=== PATIENT | male | born 1975 | race Caucasian/White ===

== ENCOUNTER 2019-06-19 14:46 | Emergency (ER) | payer BC ==
[2019-06-19 15:28] LABS: ANION GAP 15.4 mmol/L (5-15); CHLORIDE,CL 106 mmol/L (98-115); SODIUM,NA 141 mmol/L (136-145)
[2019-06-19] MEDS ORDERED: Ketorolac 30 MG/ML SDV IVPUSH ONE (15:29)
--- NOTE | 2019-06-19 15:36 | EDM.PDOC ---
ED HPI GENERAL MEDICAL PROBLEM - General Chief Complaint: General Stated Complaint: EXTREME PAIN IN LEFT TESTICAL Time Seen by Provider: 06/19/19 15:14 Source of Information: Reports: Patient History Limitations: Reports: No Limitations - History of Present Illness INITIAL COMMENTS - FREE TEXT/NARRATIVE: Patient presents with acute left testicle pain that started about 45 minutes ago while standing at work. He says there is no swelling, fever or drainage. He had a very similar episode of this 3-4 years ago that was treated as an infection of urine backflowing into the vas deferens he tells me. It did improve after a few days on antibiotic he says. He denies vasectomy or hernias. The pain is intermittent from 0-9/10. He is not sexually active currently but was for a short time about 6 weeks ago. Since his divorce 2 years ago he has had some problems with erectile dysfunction. He denies any kidney problems. He has hypertension and ulcerative colitis. He drove himself here today. Left Groin Pain Score (Numeric/FACES): 7 - Related Data Allergies Allergy/AdvReac Type Severity Reaction Status Date / Time No Known Drug Allergies Allergy Other Verified 06/19/19 14:50 Home Meds: Home Meds Mesalamine [Lialda] 4 tab PO DAILY 06/19/19 [History] buPROPion HCl [Bupropion Xl] 150 mg PO DAILY 06/19/19 [History] hydroCHLOROthiazide [Hydrochlorothiazide] 25 mg PO DAILY 06/19/19 [History] Past Medical History Cardiovascular History: Reports: Hypertension Gastrointestinal History: Reports: Other (See Below) Other Gastrointestinal History: ulcerative colitis Psychiatric History: Reports: Anxiety, Depression - Infectious Disease History Infectious Disease History: Reports: Chicken Pox - Past Surgical History Cardiovascular Surgical History: Reports: None GI Surgical History: Reports: None Social & Family History - Tobacco Use Smoking Status *Q: Current Every Day Smoker Years of Tobacco use: 2 Packs/Tins Daily: 1 - Caffeine Use Caffeine Use: Reports: Coffee, Energy Drinks, Soda - Recreational Drug Use Recreational Drug Use: No ED ROS GENERAL - Review of Systems Review Of Systems: See Below Constitutional: Denies: Fever, Weakness HEENT: Reports: No Symptoms Respiratory: Denies: Shortness of Breath, Cough Cardiovascular: Denies: Chest Pain, Lightheadedness, Syncope Endocrine: Denies: Polyuria GI/Abdominal: Denies: Abdominal Pain, Vomiting : Reports: Flank Pain (pain radiates up to left lateral low back but not really up to flank). Denies: Dysuria, Frequency, Hematuria, Incontinence Musculoskeletal: Reports: No Symptoms Skin: Reports: No Symptoms Neurological: Denies: Confusion, Seizure, Syncope, Trouble Speaking, Difficulty Walking Psychiatric: Denies: Agitation, Anxiety, Confusion ED EXAM, GENERAL - Physical Exam Exam: See Below Exam Limited By: No Limitations General Appearance: Alert, WD/WN, No Apparent Distress Eye Exam: Bilateral Eye: EOMI, Normal Inspection, PERRL Ears: Normal External Exam, Hearing Grossly Normal Nose: Normal Inspection, No Blood Throat/Mouth: Normal Inspection, Normal Lips, Normal Voice, No Airway Compromise Head: Atraumatic, Normocephalic Neck: Normal Inspection, Full Range of Motion Respiratory/Chest: No Respiratory Distress, Lungs Clear, Normal Breath Sounds, No Accessory Muscle Use Cardiovascular: Regular Rate, Rhythm, No Murmur GI/Abdominal: Normal Bowel Sounds, Soft, Non-Tender, No Organomegaly, No Distention (Male) Exam: No Hernia, Circumcised, Testicular Tenderness (L) (pain was somewhat relieved by manual elevation of testicle), Other (No pain to palpation of epididymis or groin.). No: Hernia, Inguinal Lymphadenopathy, Penile Lesions , Rash, Scrotal Swelling, Scrotum Tenderness (L) (just confined to testicle not the scrotum), Scrotum Tenderness (R), Suprapubic Fullness, Testicular Mass, Testicular Tenderness (R), Urethral Discharge Back Exam: Normal Inspection, Full Range of Motion Extremities: Normal Inspection, Normal Range of Motion, Non-Tender, No Pedal Edema Neurological: Alert, Oriented, Normal Cognition, No Motor/Sensory Deficits Psychiatric: Normal Affect, Normal Mood Skin Exam: Warm, Dry, Intact, Normal Color, No Rash Lymphatic: No Adenopathy Course - Vital Signs Last Recorded V/S: Last Vital Signs Temp 97.9 F 06/19/19 14:54 Pulse 86 06/19/19 14:54 Resp 20 06/19/19 14:54 BP 159/80 H 06/19/19 14:54 Pulse Ox 98 06/19/19 14:54 - Orders/Labs/Meds Labs: Laboratory Tests 06/19/19 06/19/1906/18/20 Range/Units 14:50 14:50 15:00 WBC 6.62 (5.00-10.00) 10^3/uL RBC 4.81 (4.50-6.00) 10^6/uL Hgb 14.9 (13.0-17.0) g/dL Hct 43.8 (40.0-52.0) % MCV 91.1 (82.0-92.0) fL MCH 31.0 (27.0-31.0) pg MCHC 34.0 (32.0-36.0) g/dL RDW 12.9 (11.5-14.5) % Plt Count 240 (150-400) 10^3/uL MPV 9.4 (7.4-10.4) fL Immature Gran % (Auto) 0.2 (0.0-5.0) % Neut % (Auto) 68.2 (50.0-70.0) % Lymph % (Auto) 19.9 L (20.0-40.0) % [place] % (Auto) 8.5 H (2.0-8.0) % Eos % (Auto) 2.6 (1.0-3.0) % Baso % (Auto) 0.6 (0.0-1.0) % Immature Gran # (Auto) 0.01 (0.00-0.50) 10^3/uL Neut # (Auto) 4.52 (2.50-7.00) 10^3/uL Lymph # (Auto) 1.32 (1.00-4.00) 10^3/uL [place] # (Auto) 0.56 (0.10-0.80) 10^3/uL Eos # (Auto) 0.17 (0.10-0.30) 10^3/uL Baso # (Auto) 0.04 (0.00-0.10) 10^3/uL Sodium 141 (136-145) mmol/L Potassium 3.7 (3.3-5.3) mmol/L Chloride 106 (98-115) mmol/L Carbon Dioxide 23.3 (21.0-32.0) mmol/L Anion Gap 15.4 H (5-15) mmol/L BUN 11 (6-25) mg/dL Creatinine 0.95 (0.51-1.17) mg/dL Est Cr Clr Drug Dosing 105.66 mL/min Estimated GFR (MDRD) > 60 mL/min Glucose 179 H (75 - 99) mg/dL Calcium 7.9 L (8.7-10.3) mg/dL Specimen Type Urinvoid Urine Color Yellow (YELLOW) Urine Appearance Slightly cloudy H (CLEAR) Urine pH 5.5 (5.0-9.0) Ur Specific [place] 1.025 (1.005-1.030) Urine Protein Negative (NEGATIVE) mg/dL Urine Glucose (UA) Negative (NEGATIVE) mg/dL Urine Ketones Negative (NEGATIVE) mg/dL Urine Occult Blood Negative (NEGATIVE) Urine Nitrite Negative (NEGATIVE) Urine Bilirubin Negative (NEGATIVE) Urine Urobilinogen 0.2 (0.2-1.0) E.U./dL Ur Leukocyte Esterase Negative (NEGATIVE) Urine RBC 0-5 (0-5) /HPF Urine WBC 0-5 (0-5) /HPF Ur Epithelial Cells Rare /LPF Urine Bacteria Rare (NONE TO FEW) /HPF Meds: Medications Discontinued Medications Generic Name Dose Route Start Last Admin Trade Name Freq PRN Reason Stop Dose Admin Ceftriaxone Sodium 1 gm 06/19/19 15:50 06/19/19 15:57 Rocephin IVPUSH 06/19/19 15:51 1 gm ONETIME ONE Administration Ketorolac Tromethamine 30 mg 06/19/19 15:29 06/19/19 15:32 Toradol IVPUSH 06/19/19 15:30 30 mg ONETIME ONE Administration - Re-Assessments/Exams Free Text/Narrative Re-Assessment/Exam: 06/19/19 16:17 UA, CBC and BMP okay except for mildly elevated serum glucose. Discussed findings with patient. He isn't aware of any diabetes but says he has had brief , intermittent tingling in some of his toes recently. I advised followup with his PCP for recheck of possible diabetes as well and pt agrees. I feel he is having acute epididymitis currently and discussed expectations and treatment with him. He is feeling quite a bit better after the Toradol and Rocephin are in. Patient discharged to home in stable condition. Departure - Departure Time of Disposition: 15:54 Disposition: Home, Self-Care 01 Condition: Good Clinical Impression: Epididymitis, Hyperglycemia - Discharge Information Instructions: Epididymitis Referrals: Roslyn Patton PA-C [Primary Care Provider] - Forms: ED Department Discharge Additional Instructions: 1. Take the antibiotic as directed starting today. 2. Take Ibuprofen 600 mg every 6-8 hours as needed for pain. 3. Recheck with your PCP if worsening, or if not improving by Sunday. 4. Follow up with your PCP in 10 days for recheck to confirm adequate treatment. 5. Return to ER as needed. Sepsis Event Note - Evaluation Sepsis Screening Result: No Definite Risk - Focused Exam Vital Signs: Vital Signs Temp Pulse Resp BP Pulse Ox 06/19/19 14:54 97.9 F 86 20 159/80 H 98 Date Exam was Performed: 06/19/19 Time Exam was Performed: 15:58
[2019-06-19] MEDS ORDERED: cefTRIAXone 1 GM Vial IVPUSH ONE (15:50)
== END 2019-06-19 16:15 | disposition home or self-care (01) ==
LOC: KA.ED 14:46
DX: N45.1 Epididymitis (principal); I10 Essential (primary) hypertension; R73.9 Hyperglycemia, unspecified; F32.9 Major depressive disorder, single episode, unspecified; F17.210 Nicotine dependence, cigarettes, uncomplicated; Z79.899 Other long term (current) drug therapy
CPT/HCPCS: 36415; 80048; 81001; 85025; 96374; 96375; 99284-25; J0696; J1885

== ENCOUNTER 2020-07-21 14:08 | Emergency (ER) | payer OTHER ==
--- NOTE | 2020-07-21 14:26 | EDM.PDOC ---
ED HPI GENERAL MEDICAL PROBLEM - General Chief Complaint: General Stated Complaint: USING TOOL AND PART BLEW APART AND HIT CHEST Time Seen by Provider: 07/21/20 14:24 Source of Information: Reports: Patient - History of Present Illness INITIAL COMMENTS - FREE TEXT/NARRATIVE: Shabbir, 44-year-old male, presents with injury occurred at work today when a grinding wheel he was using via air-driven almond grinder fractured and exploded with a large piece of the wheel striking his right arm right chest and the nipple region. He initially had shortness of breath secondary of the trauma but has improved significantly with no respiratory distress upon his arrival. He had recently change the wheel and it had been used for very short period of time when its integrity disrupted. He denies any other contributing factors with mild pain in the distal humerus at the antecubital region with superficial scratch, and the injury and wounds in the right nipple area. Denies any other concerns or problems health history includes hypertension which she is on hydrochlorothiazide and doing well. Onset: Today, Sudden Duration: Minutes: Location: Reports: Chest Quality: Reports: Burning, Sharp Right Upper Chest Pain Score (Numeric/FACES): 7 - Related Data Allergies Allergy/AdvReac Type Severity Reaction Status Date / Time No Known Drug Allergies Allergy Other Verified 07/21/20 14:16 Home Meds: Home Meds Mesalamine [Lialda] 4 tab PO DAILY 06/19/19 [History] hydroCHLOROthiazide [Hydrochlorothiazide] 25 mg PO DAILY 06/19/19 [History] Past Medical History Cardiovascular History: Reports: Hypertension Respiratory History: Reports: None Gastrointestinal History: Reports: Other (See Below) Other Gastrointestinal History: ulcerative colitis Psychiatric History: Reports: Anxiety, Depression - Infectious Disease History Infectious Disease History: Reports: Chicken Pox - Past Surgical History Cardiovascular Surgical History: Reports: None GI Surgical History: Reports: None Social & Family History - Family History Family Medical History: No Pertinent Family History - Caffeine Use Caffeine Use: Reports: Coffee, Energy Drinks, Soda ED ROS GENERAL - Review of Systems Review Of Systems: Comprehensive ROS is negative, except as noted in HPI. ED EXAM, GENERAL - Physical Exam Exam: See Below Free Text/Narrative:: Alert oriented with minimal if any distress. There is no cyanosis nor pallor noted. HEENT is negative to discharge nor deformity, he is able to speak freely with no distress. Neck is soft supple no lymphadenopathy no JVD noted. Thorax is clear throughout with no wheezes nor crackles. There is laceration horizontal across the nipple as well as slightly inferior for superficial scratches. There is no active bleeding. Cardiac is regular no appreciated murmur. Abdomen is soft no injury is noted with bowel sounds present. Right upper extremity has superficial scratches at the distal humerus antecubital fossa region as he had his forearm flexed with the almond grinder positioning at the time of the wheel disruption. There is no evidence of injury to the lateral nor posterior thorax nor abdomen. Course - Vital Signs Last Recorded V/S: Last Vital Signs Temp Pulse 80 07/21/20 14:25 Resp 20 07/21/20 14:25 BP 152/107 H 07/21/20 14:25 Pulse Ox 96 07/21/20 14:25 - Orders/Labs/Meds Orders: Active Orders 24 hr Category Date Time Status Vaccines to be Administered [RC] PER UNIT ROUTINE Care 07/21/20 14:33 Ordered Meds: Medications Discontinued Medications Generic Name Dose Route Start Last Admin Trade Name Freq PRN Reason Stop Dose Admin Diphtheria/Tetanus/Acell Pertussis 0.5 ml 07/21/20 14:32 07/21/20 14:38 Diphtheria,Pertussis(Acell),Tetanus Vaccine 0.5 Ml Syringe IM 07/21/20 14:33 0.5 ml .ONCE ONE Administration Ketorolac Tromethamine 60 mg 07/21/20 14:46 07/21/20 14:50 Ketorolac 60 Mg/2 Ml Sdv IM 07/21/20 14:47 60 mg ONETIME ONE Administration Neomycin/Polymyxin/Bacitracin 1 each 07/21/20 14:44 07/21/20 14:51 Bacitracin/Neomycin/Polymyxin B Oint 0.9 Gm U/D Packet TOP 07/21/20 14:45 1 each ONETIME ONE Administration - Re-Assessments/Exams Free Text/Narrative Re-Assessment/Exam: 07/21/20 15:Pain improved with Toradol injection. Departure - Departure Time of Disposition: 15:00 Disposition: Home, Self-Care 01 Condition: Good Clinical Impression: Abrasion of arm, right, Contusion, chest wall, Abrasion of right chest wall, Work related injury - Discharge Information *PRESCRIPTION DRUG MONITORING PROGRAM REVIEWED*: Not Applicable *COPY OF PRESCRIPTION DRUG MONITORING REPORT IN PATIENT LEI: Not Applicable Referrals: Roslyn Patton PA-C [Primary Care Provider] - Forms: ED Department Discharge Additional Instructions: We have updated your tetanus status today, you will be good for 6 to 10 years dependent on injury status. You sustained an abrasion/contusion of the chest wall. There is no fragments or debris noted on the chest x-ray. You need to keep this is clean as possible and cover it if in a dirty jose type environment. You may use triple antibiotic, bacitracin, or other antibiotic creams for a couple days. After that you may leave open to air. You may cover this if you find your clothing irritating to the area. Tylenol or Ibuprofen with food as needed for pain/swelling. Follow-up with your clinic as needed or return to the emergency department if you experience significant changes or concerns. This may take 6 to 10 days to resolve. Monitor for any evidence of infection or irritation. Sepsis Event Note (ED) - Focused Exam Vital Signs: Vital Signs Pulse Resp BP Pulse Ox 07/21/20 14:25 80 20 152/107 H 96 - Problem List & Annotations (1) Work related injury SNOMED Code(s): 41118591 Code(s): Y99.0 - CIVILIAN ACTIVITY DONE FOR INCOME OR PAY Status: Acute Priority: High Current Visit: Yes (2) Contusion, chest wall SNOMED Code(s): 38419684 Code(s): S20.219A - CONTUSION OF UNSPECIFIED FRONT WALL OF THORAX, INIT ENCNTR Status: Acute Priority: High Current Visit: Yes Qualifiers: Encounter type: initial encounter (3) Abrasion of right chest wall SNOMED Code(s): 44263406753276783 Code(s): S20.311A - ABRASION OF RIGHT FRONT WALL OF THORAX, INITIAL ENCOUNTER Status: Acute Priority: High Current Visit: Yes Qualifiers: Encounter type: initial encounter Qualified Code(s): S20.311A - Abrasion of right front wall of thorax, initial encounter (4) Abrasion of arm, right SNOMED Code(s): 631577909 Code(s): S40.811A - ABRASION OF RIGHT UPPER ARM, INITIAL ENCOUNTER Status: Acute Priority: High Current Visit: Yes Qualifiers: Encounter type: initial encounter Qualified Code(s): S40.811A - Abrasion of right upper arm, initial encounter - My Orders Last 24 Hours: My Active Orders 07/21/20 14:33 Vaccines to be Administered [RC] PER UNIT ROUTINE - Assessment/Plan Last 24 Hours: My Active Orders 07/21/20 14:33 Vaccines to be Administered [RC] PER UNIT ROUTINE Plan: We have updated your tetanus status today, you will be good for 6 to 10 years dependent on injury status. You sustained an abrasion/contusion of the chest wall. There is no fragments or debris noted on the chest x-ray. You need to keep this is clean as possible and cover it if in a dirty jose type environment. You may use triple antibiotic, bacitracin, or other antibiotic creams for a couple days. After that you may leave open to air. You may cover this if you find your clothing irritating to the area. Tylenol or Ibuprofen with food as needed for pain/swelling. Follow-up with your clinic as needed or return to the emergency department if you experience significant changes or concerns. This may take 6 to 10 days to resolve. Monitor for any evidence of infection or irritation.
[2020-07-21] MEDS: Diphtheria,Pertussis(Acell),Tetanus Vaccine 0.5 ML Syringe IM ONE (14:38)
--- NOTE | 2020-07-21 14:43 | CR ---
[id number] RAD/RAD Chest PA And Lateral EXAM: RAD Chest PA And Lateral CLINICAL DATA: TRAUMA COMPARISON: No previous similar exam is available. FINDINGS: The lungs are clear. The cardiomediastinal contour is normal. The regional bones and soft tissues are unremarkable. IMPRESSION: NO ACUTE PROCESS. Jewel Gore MD 07/21/20 [id number] Thank you for allowing us to participate in the care of your patient.
[2020-07-21] MEDS: Ketorolac 60 MG/2 ML SDV IM ONE (14:50)
[2020-07-21] MEDS: Bacitracin/Neomycin/Polymyxin B Oint 0.9 GM U/D Packet TOP ONE (14:51)
== END 2020-07-21 15:20 | disposition home or self-care (01) ==
LOC: KA.ED 14:08
DX: S21.011A Laceration without foreign body of right breast, initial encounter (principal); S20.211A Contusion of right front wall of thorax, initial encounter; S40.811A Abrasion of right upper arm, initial encounter; Z23 Encounter for immunization; W22.8XXA Striking against or struck by other objects, initial encounter; Y99.0 Civilian activity done for income or pay
CPT/HCPCS: 71046; 90471; 90715; 96372; 99283; 99283-25; J1885